=== PATIENT | male | born 1950 | race Caucasian/White ===

== ENCOUNTER 2018-02-27 12:10 | Day surgery (SDC) | payer MEDICARE, OTHER ==
[~2018-02-27] VITALS: Ht 175.3 cm; Wt 94.3 kg
[~2018-02-27 12:10] MED LIST: FLOMAX0.4 MG PO; HYDROCODON-ACE1 EAC3 PO; LISINOPRIL10 MG PO; LISINOPRIL20 MG PO; MELOXICAM7.5 MG PO; NORCO 5-325 TA1 EACH PO; SIMVASTATIN20 MG PO
[2018-02-27] MEDS ORDERED: DICLOFENAC SODI25 MG PO (12:49)
--- NOTE | 2018-02-27 13:49 | NUR ---
02/27/18 1349 Pamela Multani 1340 PT ARRIVED TO PACU RESP EVEN AND UNLABORED. PT ON 2L VIA NC MAINTAINING OWN AIRWAY. PT REORIENTED TO TO PACU. 1342 O2 REMOVED O2 SAT 100%. PT DENIES PAIN AND NAUSEA.
--- NOTE | 2018-03-09 18:32 | OR ---
[facility] [address] [place], [place] [address] Signed DATE OF OPERATION: 02/27/2018 SURGEON: Steven Edmonds MD PREOPERATIVE DIAGNOSIS: History of hyperplastic polyp in 2007. POSTOPERATIVE DIAGNOSIS: Polyps x2 (low rectum and midtransverse colon). PROCEDURE: Total colonoscopy to cecum with cold morcellation polypectomy x2. ANESTHESIA: Intravenous sedation, fentanyl 100 mcg, Versed 4 mg. INDICATION: This 67-year-old white man is a patient of Dr. Gonsales, well known to me from the past having undergone colonoscopy in 2007. At that time, he had hyperplastic polyp noted. He does have family history of colon cancer in his mother. He is symptom-free at this time. He was admitted to undergo colonoscopy for surveillance. He understands the risks of bleeding, infection, and perforation. FINDINGS: The prep was excellent. Complete colonoscopy was undertaken to the cecum without question. There were 2 small polyps. A small pedunculated polyp in the midtransverse colon and a more sessile appearing polyp of the low rectum just above the dentate line. Both showed high probability of adenomatous change based on narrow-band imaging. The remaining colon was normal. DESCRIPTION OF PROCEDURE: The patient was brought to the endoscopy suite and placed in lateral decubitus position, given intravenous sedation to the point of slurred speech and nystagmus. Digital rectal examination was normal. An Olympus video colonoscope was passed in the rectum and manipulated throughout the colon ultimately intubating in the cecum itself. The ileocecal valve and appendiceal orifice were normal. The scope was withdrawn from that point. Careful withdrawal of scope showed no abnormality into the midtransverse colon, where a small pedunculated polyp was noted. Narrow-band imaging showed the mucosa to be suggestive of adenoma. Electronically Signed By: STEVEN EDMONDS MD 03/09/18 1832 PATIENT NAME: SIERRA JETT OPERATIVE REPORT DATE OF : 50 REPORT #: [id number] PHYSICIAN: STEVEN EDMONDS MD PCP: KINGSLEY GONSALES MD REPORT IS CONFIDENTIAL AND NOT TO BE RELEASED WITHOUT AUTHORIZATION [facility] [address] [place], [place] [address] Signed Cold morcellation polypectomy was undertaken excising the polyp. The scope was further withdrawn. There were no other abnormalities until retroflexed view of the rectum, which showed a small sessile polyp above the dentate line. This was clearly not a hypertrophied anal papilla. Narrow-band imaging once again was employed, which showed high probability of adenomatous change. This lesion was excised with cold morcellation technique as well. The scope was straightened, withdrawn, and removed. The patient was taken to recovery room in good condition. CONCLUDING DIAGNOSIS: Polyps x2, probably adenomatous. PLAN: If adenomas are confirmed on pathology, recommend repeat colonoscopy in 5 years. If hyperplastic 10 years or unless symptoms should develop sooner. MD BIJU Mooney/SAEID /[id number] cc: Dr. Gonsales Copies: ~ Electronically Signed By: STEVEN EDMONDS MD 03/09/18 1832 PATIENT NAME: SIERRA JETT OPERATIVE REPORT DATE OF : 50 REPORT #: [id number] PHYSICIAN: STEVEN EDMONDS MD PCP: KINGSLEY GONSALES MD REPORT IS CONFIDENTIAL AND NOT TO BE RELEASED WITHOUT AUTHORIZATION
== END 2018-02-27 14:20 | disposition home or self-care (01) ==
LOC: DS 12:10 → OPS 12:10 → DS 14:00 → OPS 14:00
PROVIDERS: Surgery
PROC: 0DBL8ZZ Excision of Transverse Colon, Via Natural or Artificial Opening Endoscopic (ICD-10-PCS; 2018-02-27)
PROC: 0DBP8ZZ Excision of Rectum, Via Natural or Artificial Opening Endoscopic (ICD-10-PCS; principal; 2018-02-27 13:00)
DX: Z12.11 Encounter for screening for malignant neoplasm of colon (principal); D12.8 Benign neoplasm of rectum; K63.5 Polyp of colon; K52.9 Noninfective gastroenteritis and colitis, unspecified; I10 Essential (primary) hypertension; Z86.010 Personal history of colon polyps; Z80.0 Family history of malignant neoplasm of digestive organs; Z98.890 Other specified postprocedural states
CPT/HCPCS: 88305; 99153; G0500; J2250; J3010; J7120

== ENCOUNTER 2018-07-26 11:57 | Emergency (ER) | payer MEDICARE, OTHER ==
[~2018-07-26] VITALS: Ht 175.3 cm; Wt 94.3 kg
[~2018-07-26 11:57] MED LIST changes: +DICLOFENAC SODI25 MG PO
== END 2018-07-26 12:56 | disposition home or self-care (01) ==
LOC: ED 11:57
PROC: 0CQ10ZZ Repair Lower Lip, Open Approach (ICD-10-PCS; principal; 2018-07-26)
DX: S01.511A Laceration without foreign body of lip, initial encounter (principal); I10 Essential (primary) hypertension; Z23 Encounter for immunization; Z79.899 Other long term (current) drug therapy; W22.8XXA Striking against or struck by other objects, initial encounter
CPT/HCPCS: 40650; 90471; 90715; 99282

== ENCOUNTER 2023-09-12 06:30 | Day surgery (SDC) | payer MEDICARE, OTHER ==
[~2023-09-12] VITALS: Ht 175.3 cm; Wt 95.5 kg
[~2023-09-12 06:30] MED LIST changes: +MELOXICAM15 MG PO; +NORVASC5 MG PO
[2023-09-12 06:43] VITALS: BP 146/94
[2023-09-12 06:45] VITALS: BP 146/94
--- NOTE | 2023-09-12 08:24 | NUR ---
09/12/23 0824 Noris Graf 0821 PT ARRIVED TO PACU. 99% ON 3L. SUPPLEMENTAL O2 TURNED OFF CURRENTLY 96% ON RA.
[2023-09-12 08:54] VITALS: BP 121/76
--- NOTE | 2023-09-12 11:21 | OR ---
[facility] [address] [place], [place] [address] Signed DATE OF OPERATION: 09/12/2023 SURGEON: Steven Edmonds MD PREOPERATIVE DIAGNOSES: 1. Family history of colon cancer (mother). 2. History of adenoma of the rectum 2018. POSTOPERATIVE DIAGNOSES: 1. Mucosal thickening at ileocecal valve. 2. Possible small polyp of cecum. PROCEDURE: Total colonoscopy to cecum with cold morcellation polypectomy x1 and biopsy of ileocecal valve. ANESTHESIA: Intravenous sedation; fentanyl 100 mcg and Versed 5 mg. INDICATION: This 73-year-old white man is a patient of Kari Blanco and known to me from the past. He last underwent colonoscopy in 2018, at which time he had a tubular adenoma of the rectum. Notably, his mother long since had colon cancer. He has no symptoms of bleeding, diarrhea, or constipation at this time. He is admitted to undergo colonoscopy. He understands the risk of bleeding, infection, and perforation. FINDINGS: The prep was good. Complete colonoscopy was undertaken to the cecum. There were few scattered diverticula, but they were insignificant. The ileocecal valve itself had some mucosal thickening which was biopsied. Narrow-band imaging did not better discern the cause of this. There appeared to be a small polyp of the cecum that was excised as well. The remaining colon was otherwise normal. DESCRIPTION OF PROCEDURE: The patient was brought to the endoscopy suite and placed in the lateral decubitus position, given intravenous sedation to the point of slurred speech and nystagmus. Digital rectal examination was normal. An Olympus video colonoscope was passed in the rectum and manipulated throughout the colon ultimately intubating the cecum itself. The ileocecal valve showed thickening of Electronically Signed By: STEVEN EDMONDS MD 09/12/23 1121 PATIENT NAME: SIERRA JETT OPERATIVE REPORT DATE OF : 50 REPORT #: [id number] PHYSICIAN: STEVEN EDMONDS MD PCP: KARI BLANCO PAC REPORT IS CONFIDENTIAL AND NOT TO BE RELEASED WITHOUT AUTHORIZATION [facility] [address] [place], [place] [address] Signed the mucosa which narrow band imaging did not distinguish as to etiology. This area was biopsied. Another fold in the cecum had a small area suggestive of polyp, though not entirely certain and this was excised. The scope was then withdrawn and examination throughout showed no sign of abnormality. Retroflexed view of the rectum was normal. The scope was removed and the patient was taken to the recovery room in good condition. CONCLUDING DIAGNOSIS: Uncertainty as to mucosal area of the ileocecal valve and small polyp (excised). PLAN: Recommend repeat colonoscopy in 5 years. Once the pathology report is adverse at which point, colonoscopy sooner would be appropriate. He will return to the ongoing care of Kari Blanco. MD BIJU Mooney/SAEID /[id number] cc: Kari Blanco PA-C Copies: ~ Electronically Signed By: STEVEN EDMONDS MD 09/12/23 1121 PATIENT NAME: SIERRA JETT OPERATIVE REPORT DATE OF : 50 REPORT #: [id number] PHYSICIAN: STEVEN EDMONDS MD PCP: KARI BLANCO PAC REPORT IS CONFIDENTIAL AND NOT TO BE RELEASED WITHOUT AUTHORIZATION
--- NOTE | 2023-09-17 14:48 | PATH ---
[facility] [address] [facility] [place], [place] [address] Signed SPECIMEN(S): A CECUM COLON POLYP SPECIMEN(S): B CECUM COLON BIOPSY SPECIMEN SOURCE: A. CECUM COLON POLYP B. CECUM COLON BIOPSY CLINICAL HISTORY: Colonoscopy. 2018 Tubular adenoma rectum. Family history of colon cancer in mother. FINAL PATHOLOGIC DIAGNOSIS: A. Cecum colon, polyp: - Serrated polyp/adenoma (multiple fragments). B. Cecum colon, biopsy: - Tubular adenoma (one fragment). JVR:cml MICROSCOPIC EXAMINATION: Histologic sections of all submitted blocks are examined by light microscopy. These findings, together with the gross examination, support the pathologic diagnosis. GROSS DESCRIPTION: A. The specimen, labeled and designated "[place], cecum colon polyp," is received in formalin and consists of four rosales soft tissue fragments, ranging from 0.1-0.2 cm. Entirely submitted in (A1). B. The specimen, labeled and designated "[place], cecum colon biopsy," is received in formalin and consists of one rosales soft tissue fragment, 0.4 cm. Entirely submitted in (B1). VB (under the direct supervision of a pathologist) The Gross Description was prepared using a voice recognition system. The report was reviewed for accuracy; however, sound-alike word errors, addition and/or deletions may occur. If there is any question about this report, please contact Client Services. PERFORMING LABORATORY: Technical component was performed by [employer], [address] [place] [id number] (CLIA# [id number]). Professional interpretation was performed by [facility], [address] [place] [address], [place] [address] (CLIA#: [id number]). PATIENT NAME: SIERRA JETT PATHOLOGY DATE OF : 50 REPORT #: [id number] PHYSICIAN: STEPHANI PATHOLOGY PCP: KARI BLANCO PAC REPORT IS CONFIDENTIAL AND NOT TO BE RELEASED WITHOUT AUTHORIZATION [address] [address] Signed Diagnostician: Brian Ibrahim MD Pathologist Electronically Signed 09/17/2023 Copies: ~ PATIENT NAME: SIERRA JETT PATHOLOGY DATE OF : 50 REPORT #: [id number] PHYSICIAN: STEPHANI PATHOLOGY PCP: KARI BLANCO PAC REPORT IS CONFIDENTIAL AND NOT TO BE RELEASED WITHOUT AUTHORIZATION
== END 2023-09-12 09:08 | disposition home or self-care (01) ==
LOC: OPS 06:30 → DS 06:30 → OPS 07:30 → DS 13:00
PROVIDERS: ATTEND Surgery
PROC: 0DBH8ZX Excision of Cecum, Via Natural or Artificial Opening Endoscopic, Diagnostic (ICD-10-PCS; principal; 2023-09-12 07:30)
DX: Z12.11 Encounter for screening for malignant neoplasm of colon (principal); D12.0 Benign neoplasm of cecum; Z80.0 Family history of malignant neoplasm of digestive organs
CPT/HCPCS: 88305; 99153; G0500; J0690; J2250; J3010; J7121

== ENCOUNTER 2025-01-14 12:06 | Day surgery (SDC) | payer MEDICARE, OTHER ==
[~2025-01-14] VITALS: Ht 175.3 cm; Wt 90.7 kg
--- NOTE | ~2025-01-14 | OR ---
[facility] [address] [place], [place] [address] Draft DATE OF OPERATION: 01/14/2025 SURGEON: Steven Edmonds MD PREOPERATIVE DIAGNOSES: 1. History of serrated adenoma of cecum. 2. Family history of colon cancer (mother). POSTOPERATIVE DIAGNOSIS: Sigmoid diverticulosis, no evidence of recurrent or persistent polyp. ANESTHESIA: Intravenous sedation fentanyl 100 mcg and Versed 5 mg. INDICATION: This 74-year-old white man is a patient of MILAGROS Olson. He underwent colonoscopy by me over a year ago, which was found to have a serrated adenoma of the cecum. He does have family history of colon cancer in his mother whom I operated number of years ago. He currently is symptom free having no bleeding, diarrhea or constipation. He understands the risk of bleeding, infection, and perforation related to colonoscopy and wished to proceed. FINDINGS: The prep was excellent. Complete colonoscopy was undertaken of the cecum. Full intubation of the cecum was accomplished. He had diverticulosis of sigmoid and left colon, but no evidence of polyp anywhere. DESCRIPTION OF PROCEDURE: The patient was brought to the endoscopy suite and placed in lateral decubitus position, given intravenous sedation to the point of slurred speech and nystagmus. Digital rectal examination was normal. An Olympus video colonoscope was passed in the rectum and manipulated throughout the colon ultimately intubating the cecum itself. The ileocecal valve and appendiceal orifice were normal. Full intubation of the cecum was accomplished. The scope was withdrawn from that point and examination throughout showed no sign of abnormality other than numerous diverticula of the sigmoid and left colon. Retroflexed view was normal as well. The scope was removed. The patient was taken to the recovery room in good condition. PATIENT NAME: SIERRA JETT OPERATIVE REPORT DATE OF : 50 REPORT #: [id number] PHYSICIAN: STEVEN EDMONDS MD PCP: KARI BLANCO PAC REPORT IS CONFIDENTIAL AND NOT TO BE RELEASED WITHOUT AUTHORIZATION [facility] [address] [place] [id number] Draft CONCLUDING DIAGNOSIS: Normal colon other than diverticulosis. No evidence of polyps or colitis. PLAN: Recommend high-fiber diet and recommend repeat colonoscopy in 5 years based on family history of his mother. MD BIJU Mooney/SAEID /[id number] cc: MILAGROS Olson Copies: ~ PATIENT NAME: SIERRA JETT OPERATIVE REPORT DATE OF : 50 REPORT #: [id number] PHYSICIAN: STEVEN EDMONDS MD PCP: KARI BLANCO PAC REPORT IS CONFIDENTIAL AND NOT TO BE RELEASED WITHOUT AUTHORIZATION
[~2025-01-14 12:06] MED LIST changes: +CEFAZOLIN SODIUM 2 GM/20 ML SYR IV SCH; +IBLOOD GLUCOSE TEST STRIP 1 EA TEST VI PRN; +LACTATED RINGER'S 1,000 ML IV SCH; +LIDOCAINE HCL 1% 5 ML SDV INJ ONE; +MIDAZOLAM HCL 5 MG/5 ML VIAL IV PRN; +fentaNYL citrate 100 MCG/2 ML VIAL IV PRN
[2025-01-14 12:21] VITALS: BP 151/90
[2025-01-14] MEDS ORDERED: MIDAZOLAM HCL 5 MG/5 ML VIAL ONE (12:53)
[2025-01-14] MEDS ORDERED: fentaNYL citrate 100 MCG/2 ML VIAL ONE (12:54)
--- NOTE | 2025-01-14 13:48 | NUR ---
01/14/25 1348 Anusha Licea 1340-PATIENT ARRIVED TO PACU ON 2L NC RR EVEN. PATIENT DROWSY REACTIVE TO VERBAL STIMULI DENIES PAIN OR NAUSEA. ABDOMEN SOFT. IVF INFUSING. 1346-PATIENT AWAKE DR. EDMONDS AT BEDSIDE TALKING TO PATIENT. HOB ELEVATED. 2L NC 100% RR EVEN. PATIENT REPORTS "HAD A TEST A FEW MONTHS AGO" FOR SLEEP APNEA.
[2025-01-14 14:16] VITALS: BP 148/90
== END 2025-01-14 14:25 | disposition home or self-care (01) ==
LOC: DS 12:06
PROVIDERS: ATTEND Surgery
PROC: 0DJD8ZZ Inspection of Lower Intestinal Tract, Via Natural or Artificial Opening Endoscopic (ICD-10-PCS; principal; 2025-01-14 14:00)
DX: K57.30 Diverticulosis of large intestine without perforation or abscess without bleeding (principal); I10 Essential (primary) hypertension; Z86.0101 Personal history of adenomatous and serrated colon polyps; Z79.899 Other long term (current) drug therapy; Z80.0 Family history of malignant neoplasm of digestive organs
CPT/HCPCS: 99153; G0500; J0690; J2250; J3010; J7121